=== PATIENT | female | born 1985 | race Two or more races ===

== ENCOUNTER 2020-12-24 10:20 | Emergency (ER) | payer MEDICAID, OTHER ==
[~2020-12-24] VITALS: Ht 170.2 cm; Wt 77.1 kg
[2020-12-24 10:52] VITALS: BP 131/91
[2020-12-24] MEDS ORDERED: DexAMETHasone SOD PHOS 10MG/1ML VIAL INJ IM ONE (11:30)
[2020-12-24] MEDS ORDERED: cefTRIAXone SOD 1,000 MG VL IM ONE (11:30)
[2020-12-24] MEDS ORDERED: ACETAMINOPHEN 500 MG TAB PO ONE (11:45)
== END 2020-12-24 12:18 | disposition home or self-care (01) ==
LOC: ER 10:20
DX: U07.1 COVID-19 (principal); J20.8 Acute bronchitis due to other specified organisms; J03.90 Acute tonsillitis, unspecified
CPT/HCPCS: 71045; 96372; 99284; J0696; J1100

== ENCOUNTER 2023-08-08 07:48 | Emergency (ER) | payer MEDICAID ==
[~2023-08-08] VITALS: Ht 170.2 cm; Wt 79.2 kg
[2023-08-08 08:22] LABS: Eosinophils # (auto) 0 10 ^3/uL (0-0.8); Lymphocytes # (auto) 1.3 10 ^3/uL (0.4-5.4); Mean Corpuscular Volume 80.6 fL (80.0-100.0); Monocytes # (auto) 0.4 10 ^3/uL (0-1.3); Red Cell Distribution Width 14.4 % (11.8-14.3)
[2023-08-08 08:24] LABS: Basophils # (auto) 0.1 10 ^3/uL (0-0.2); Basophils % (auto) 0.6 % (0.0-2.0); Eosinophils % (auto) 0.3 % (0.0-7.0); Hematocrit 42.3 % (36.0-46.0); Hemoglobin 13.8 g/dL (12.2-16.2); Lymphocytes % (auto) 12.9 % (10.0-50.0); Mean Corpuscular Hemoglobin 26.2 pg (28.0-32.0); Mean Corpuscular Hgb Conc. 32.5 g/dL (32.0-36.0); Neutrophils % (auto) 82.2 % (37.0-80.0); Red Blood Cells 5.25 10^6/uL (4.0-5.20); White Blood Cell 9.8 10^3/uL (4.4-10.8)
[2023-08-08 08:43] LABS: Urine Bacteria FEW /hpf (None Seen); Urine Blood Negative /uL (Negative); Urine Clarity Clear (Clear); Urine Color Yellow (Yellow); Urine Mucus FEW (None Seen); Urine Protein, UAD 1+ (Negative); Urine Specific Gravity 1.024 (1.001-1.035); Urine Urobilinogen Normal (Negative); Urine WBC 1 /hpf (0 - 5); Urine pH 7.5 (5.0-8.0)
[2023-08-08 08:53] LABS: Alanine Aminotransferase 20 U/L (7-40); Albumin 4.6 g/dL (3.2-4.8); Alkaline Phosphatase 59 U/L (46-116); Anion Gap 8 (5-15); Aspartate Aminotransferase 22 U/L (13-40); BUN/Creatinine Ratio 9.5 (10.0-20.0); Blood Urea Nitrogen 6 mg/dL (9-23); Carbon Dioxide 25 mmol/L (20-30); Chloride 108 mmol/L (98-107); Glucose 105 mg/dL (74-106); Potassium 4.1 mmol/L (3.5-5.1); Sodium 141 mmol/L (136-145)
[2023-08-08 08:54] LABS: Bilirubin, Total 0.7 mg/dL (0.2-1.0); Total Protein 7.2 g/dL (5.7-8.2)
[2023-08-08 09:50] LABS: Amphetamine Screen, Urine Neg (NEGATIVE)
[2023-08-08 09:52] LABS: Barbiturate Scree,Urine Neg (NEGATIVE); Benzodiazephine Screen, Urine Neg (NEGATIVE); Cannabinoid Screen, Urine Neg (NEGATIVE); Cocaine Screen, Urine Neg (NEGATIVE); Opiate Scree,Urine Neg (NEGATIVE); Phencyclidine Screen, Urine Neg (NEGATIVE)
[2023-08-08] MEDS ORDERED: ONDANSETRON HCL 4 MG/2 ML VIAL IV ONE (10:15)
[2023-08-08] MEDS ORDERED: FAMOTIDINE INJECTION 40 MG in SODIUM CHL 0.9% 100 ML IV ONE (10:15)
[2023-08-08] MEDS ORDERED: PANTOPRAZOLE 80 MG in SODIUM CHL 0.9% 100 ML IV ONE (10:15)
[2023-08-08] MEDS ORDERED: SODIUM CHLORIDE 0.9% 1,000 ML IV ONE (10:15)
[2023-08-08] MEDS ORDERED: PANTOPRAZOLE 40mg/50ML NS AE 50 ML IV ONE (10:15)
[2023-08-08 15:01] VITALS: PULSE 64; RESP 10; O2SAT 99
[2023-08-08 17:21] LABS: COVID19 ANTIGEN SOFIA FIA NEGATIVE (NEGATIVE)
[2023-08-08 19:50] VITALS: BP 169/88; PULSE 82; RESP 22; TEMP 98.9; O2SAT 96
== END 2023-08-08 20:05 | disposition short-term general hospital (02) ==
LOC: ER 07:48
DX: R11.2 Nausea with vomiting, unspecified (principal); R10.2 Pelvic and perineal pain; R10.84 Generalized abdominal pain; J44.9 Chronic obstructive pulmonary disease, unspecified; F17.210 Nicotine dependence, cigarettes, uncomplicated; Z32.02 Encounter for pregnancy test, result negative; Z79.899 Other long term (current) drug therapy; Z20.822 Contact with and (suspected) exposure to COVID-19
CPT/HCPCS: 36415; 74176; 76705; 80053; 80307; 81001; 81025; 82270; 83690; 84702; 85025; 87426; 96365; 96366; 96368; 96375; 99285; C9113; J2405; J7030